=== PATIENT | female | born 1955 | race Caucasian/White ===

== ENCOUNTER 2024-11-27 17:46 | Emergency (ER) | payer OTHER ==
[2024-11-27 17:55] VITALS: TEMP 98.1; BMI 24.5
[2024-11-27] MEDS ORDERED: PROCHLORPERAZINE INJECTION 10 MG/2 ML VIAL ONE (21:23)
[2024-11-27 21:30] LABS: EOSINOPHILS # 0.21 x10^3/uL (0.04-0.36)
[2024-11-27 21:31] LABS: BASOPHILS # 0.02 x10^3/uL (0.01-0.08); IMMATURE PLATELET FRACTION # 17.10 x10^3/uL
[2024-11-27] MEDS: PROCHLORPERAZINE INJECTION 10 MG/2 ML VIAL IVPB ONE (21:34)
[2024-11-27] MEDS: SODIUM CHLORIDE 0.9% 500 ML INFUS.BAG IV ONE (21:34)
[2024-11-27 21:36] LABS: ABSOLUTE IMMATURE GRANULOCYTES 0.01 x10^3/uL (0.0-0.031); EOSINOPHIL % 3.3 % (0.7-5.8); INR 0.95 (0.83-1.09); MCHC 31.5 g/dl (32.2-35.5); MEAN CELL VOLUME 89.0 fl (79.4-94.8); MEAN PLT VOLUME 11.9 fl (9.4-12.3); MONOCYTE # 0.53 x10^3/uL (0.24-0.86); MONOCYTE % 8.4 % (4.7-12.5); PROTHROMBIN TIME (PATIENT) 10.4 SEC (9.7-13.0); RDW 15.4 % (12.4-16.4)
[2024-11-27] MEDS: ACETAMINOPHEN 1000 MG/100 ML BAG IVPB ONE (21:36)
[2024-11-27 21:39] LABS: ACTIVATED PTT 26.5 SECONDS (25.2-36.5)
[2024-11-27 21:41] LABS: GLUCOSE,RANDOM 112.0 mg/dL (74-106)
[2024-11-27 21:42] LABS: TOT PROT 8.5 g/dl (6.4-8.2)
[2024-11-27 21:43] LABS: CO2 22.0 mmol/L (21-32)
[2024-11-27 21:45] LABS: ALK PHOS 98.0 U/L (40-150)
[2024-11-27 21:47] LABS: CREATININE 0.63 mg/dL (0.55-1.3); SGOT/AST 25.0 U/L (5-34); SGPT/ALT 33.0 U/L (0-55)
[2024-11-27 23:54] VITALS: BP 134/85; PULSE 81; RESP 17
== END 2024-11-28 00:04 | disposition home or self-care (01) ==
LOC: JER 17:46
PROC: 3E033GC Introduction of Other Therapeutic Substance into Peripheral Vein, Percutaneous Approach (ICD-10-PCS; principal; 2024-11-27)
PROC: 3E033GC Introduction of Other Therapeutic Substance into Peripheral Vein, Percutaneous Approach (ICD-10-PCS; 2024-11-27)
DX: R51.9 Headache, unspecified (principal); H53.8 Other visual disturbances; R11.0 Nausea; R26.81 Unsteadiness on feet
CPT/HCPCS: 36415; 70496-TC; 70498-TC; 80053; 83735; 85025; 85610; 85651; 85730; 86140; 86850; 86900; 86901; 93005; 93010; 99285-25